=== PATIENT | male | born 1975 | race African-American/Black ===

== ENCOUNTER 2016-08-29 16:53 | Emergency (ER) | payer SELFPAY ==
[~2016-08-29] VITALS: Ht 188 cm; Wt 93.0 kg
[2016-08-29 17:07] VITALS: BP 142/84
[2016-08-29] MEDS ORDERED: HYDR-971 PO (17:11)
[2016-08-29] MEDS ORDERED: AMOX500C PO (17:11)
--- NOTE | 2016-08-29 17:13 | PHYS DOC ---
Adult General Chief Complaint Chief Complaint: DENTAL PROBLEM HPI HPI Patient is a 41 year old male who presents emergency room with a complaint of atraumatic right jaw pain that began 2-3 days ago. Patient states that overall he is been experiencing right-sided jaw pain for the past 2-3 months. He states he has not had any dental work done on that side. He denies antibiotic use in the past 90 days. Review of Systems Review of Systems Constitutional: Denies fever or chills [] Eyes: Denies change in visual acuity, redness, or eye pain [] HENT: Denies nasal congestion or sore throat [] Respiratory: Denies cough or shortness of breath [] Cardiovascular: No additional information not addressed in HPI [] GI: Denies abdominal pain, nausea, vomiting, bloody stools or diarrhea [] : Denies dysuria or hematuria [] Musculoskeletal: Denies back pain or joint pain [] Integument: Denies rash or skin lesions [] Neurologic: Denies headache, focal weakness or sensory changes [] Endocrine: Denies polyuria or polydipsia [] Physical Exam Physical Exam Constitutional: Well developed, well nourished, mild distress, non-toxic appearance. HENT: Normocephalic, atraumatic, bilateral external ears normal, oropharynx moist, no oral exudates, nose normal. Patient's face is without any external swelling or erythema to the skin. There is no trismus. Patient does have an impacted right mandibular wisdom tooth that is decayed into the pulp. There is no active purulent drainage or adjacent gingival abscess. There is some mild indurated gingival swelling. Eyes: PERRLA, EOMI, conjunctiva normal, no discharge. [] Neck: Normal range of motion, no tenderness, supple, no stridor. There is no meningismus or cervical lymphadenopathy. Cardiovascular:Heart rate regular rhythm, no murmur [] Lungs & Thorax: Bilateral breath sounds clear to auscultation [] Abdomen: Bowel sounds normal, soft, no tenderness, no masses, no pulsatile masses. [] Skin: Warm, dry, no erythema, no rash. [] Back: No tenderness, no CVA tenderness. [] Extremities: No tenderness, no cyanosis, no clubbing, ROM intact, no edema. [] Neurologic: Alert and oriented X 3, normal motor function, normal sensory function, no focal deficits noted. [] Psychologic: Affect normal, judgement normal, mood normal. [] EKG EKG [] Radiology/Procedures Radiology/Procedures [] Course & Med Decision Making Course & Med Decision Making Pertinent Labs and Imaging studies reviewed. (See chart for details) [] Dragon Disclaimer Dragon Disclaimer This electronic medical record was generated, in whole or in part, using a voice recognition dictation system. Departure Departure Impression: Primary Impression: Dental caries Disposition: HOME, SELF-CARE Condition: GOOD Patient Instructions: Dental Caries-Brief, Dental Pain, [id number] Additional Instructions: 1. Take the medication as prescribed. 2. Review the discharge instructions for reasons to return the emergency department. 3. You can use dental wax to plug the cavity to help prevent nerve irritation. This is [id number] and can be picked up at a local drugstore. 4. Schedule an appointment with the dentist on [address] tomorrow. Scripts Hydrocodone/Apap 5-325 (Burns 5-325 Tablet)1 Each Tablet1 Tab PO PRN Q6HRS PRN PAIN #15 TAB Prov:GEORGIANA COWAN 08/29/16 Amoxicillin 500 Mg [id number] Mg PO TID #30 CAP Prov:GEORGIANA COWAN 08/29/16 GEORGIANA COWAN Aug 29, 2016 17:13
[2016-08-29] MEDS ORDERED: HYDROCODONE/APAP 5/325MG TABLET. PO ONE (17:30)
== END 2016-08-29 17:22 | disposition home or self-care (01) ==
LOC: ER 16:53
DX: K02.9 Dental caries, unspecified (principal)
CPT/HCPCS: 99283

== ENCOUNTER 2017-08-27 06:12 | Emergency (ER) | payer OTHER, BC ==
[2017-08-27] MEDS: IBUPROFEN 400 MG TABLET. PO (06:51)
== END 2017-08-27 08:23 | disposition home or self-care (01) ==
LOC: ER 06:12
DX: M54.5 Low back pain (principal); M25.552 Pain in left hip; V43.52XA Car driver injured in collision with other type car in traffic accident, initial encounter; Y93.I9 Activity, other involving external motion; Y92.410 Unspecified street and highway as the place of occurrence of the external cause; Y99.8 Other external cause status
CPT/HCPCS: 72100; 73502; 99284